=== PATIENT | female | born 1930 | race Caucasian/White ===

== ENCOUNTER 2016-10-28 09:39 | Inpatient (IN) | payer OTHER ==
[~2016-10-28] VITALS: Ht 165.1 cm; Wt 43.0 kg
[2016-10-28 10:54] LABS: Basophils # (auto) 0 uL; Basophils % (auto) 0.4 % (0.0-2.0); Eosinophils # (auto) 0 uL; Eosinophils % (auto) 0.3 % (0.0-7.0); Hematocrit 40.2 % (36.0-46.0); Hemoglobin 13.6 g/dL (12.2-16.2); Lymphocytes # (auto) 0.9 uL; Mean Corpuscular Hgb Conc. 33.9 g/dL (32.0-36.0); Mean Corpuscular Volume 88.4 fL (80.0-100.0); Mean Platelet Volume 8.8 fL (7.4-10.4); Monocytes # (auto) 0.5 uL; Monocytes % (auto) 6.7 % (0.0-12.0); Neutrophils # (auto) 5.8 uL; Neutrophils % (auto) 79.6 % (37.0-80.0); Platelet Count (auto) 333 10^3/uL (140-450); Red Cell Distribution Width 14.1 % (11.6-16.0); White Blood Cell 7.3 10^3/uL (4.4-10.8)
[2016-10-28] MEDS ORDERED: SODIUM CHLORIDE 0.9% 500 ML IVB ONE (10:55)
[2016-10-28 11:16] LABS: Albumin 3.2 g/dL (3.4-5.0); BUN/Creatinine Ratio 19.6; Calcium 9.3 mg/dL (8.5-10.1); Potassium 3.7 mmol/L (3.5-5.1); Total Protein 6.5 g/dL (6.4-8.2)
[2016-10-28 11:25] LABS: Magnesium 2.4 mg/dL (1.6-2.6)
[2016-10-28 11:27] LABS: INR 0.96 (0.9-1.15); Partial Thromboplastin Time 23.6 sec (22.64-33.71); Prothrombin Time 10.5 sec (9.37-12.3)
[2016-10-28 12:01] LABS: B-Type Natriuretic Peptide 166.79 pg/mL (0-100)
[2016-10-28] MEDS ORDERED: cefTRIAXone 1GM/50ML D5W 50 ML IV ONE (13:30)
[2016-10-28] MEDS ORDERED: NITROGLYCERIN 0.4 MG SL TAB SL PRN ×2 (13:45→14:00)
[2016-10-28] MEDS ORDERED: ALBUTEROL SULF 2.5 MG/0.5ML(0.5%) NEB SOLN NEB PRN (13:45)
[2016-10-28] MEDS ORDERED: LACTULOSE 20Gm/30ML SOLN PO PRN ×2 (13:45)
[2016-10-28] MEDS ORDERED: PROMETHAZINE HCL 25 MG/ML 1ML IV PRN ×2 (13:45→14:00)
[2016-10-28] MEDS ORDERED: LORazepam 0.5 MG TAB PO PRN (13:45)
[2016-10-28] MEDS ORDERED: TEMAZEPAM 15 MG CAP PO PRN ×2 (13:45→14:00)
[2016-10-28] MEDS ORDERED: ACETAMINOPHEN 500 MG TAB PO PRN (13:45)
[2016-10-28] MEDS ORDERED: MORPHINE SULF INJ 2 MG/ML SYRINGE 1ML IV PRN ×2 (13:45)
[2016-10-28] MEDS ORDERED: HYDROcodone-ACET 5/325MG TAB PO PRN (13:45)
[2016-10-28] MEDS: METOPROLOL TARTRATE 25 MG TAB PO SCH ×2 (15:05→23:30)
[2016-10-28] MEDS: ASPirin 81 mg TAB PO SCH (15:05)
[2016-10-28] MEDS: ENOXAPARIN SOD 30 MG/0.3 ML SYRINGE SC SCH (15:06)
[2016-10-28] MEDS: PANTOPRAZOLE 40 MG TAB PO SCH (15:06)
[2016-10-28] MEDS: cefTRIAXone 1GM/50ML D5W 50 ML IV SCH (15:13)
[2016-10-28] MEDS: SODIUM CHLORIDE 0.9% 1,000 ML IV SCH (15:13)
[2016-10-28 15:32] LABS: Temperature: 23.7 C (20.0-25.0)
[2016-10-28] MEDS: ALBUTEROL SULF 2.5 MG/0.5ML(0.5%) NEB SOLN NEB SCH (18:00)
[2016-10-28] MEDS: AZITHROMYCIN 500MG/D5W 250ML 250 ML IV SCH (20:30)
[2016-10-28 21:07] VITALS: BP 148/72
[2016-10-28] MEDS: ATORVASTATIN 20 MG TAB PO SCH (23:28)
[2016-10-29] MEDS: ALBUTEROL SULF 2.5 MG/0.5ML(0.5%) NEB SOLN NEB SCH ×4 (00:54→19:43)
[2016-10-29] MEDS: SODIUM CHLORIDE 0.9% 1,000 ML IV SCH ×2 (02:53→16:18)
[2016-10-29 09:00] VITALS: BP 162/82
[2016-10-29] MEDS ORDERED: ENOXAPARIN SOD 40 MG/0.4 ML SYRINGE SC SCH (10:00)
[2016-10-29] MEDS: cefTRIAXone 1GM/50ML D5W 50 ML IV SCH (10:15)
[2016-10-29] MEDS: ASPirin 81 mg TAB PO SCH (10:15)
[2016-10-29] MEDS: ENOXAPARIN SOD 30 MG/0.3 ML SYRINGE SC SCH (10:16)
[2016-10-29] MEDS: PANTOPRAZOLE 40 MG TAB PO SCH (10:16)
[2016-10-29] MEDS ORDERED: IOHEXOL 350 MG/ML 100ML IJ ONE (11:26)
[2016-10-29] MEDS: AZITHROMYCIN 500MG/D5W 250ML 250 ML IV SCH (12:27)
[2016-10-29 13:00] VITALS: BP 168/100
[2016-10-29] MEDS: METOPROLOL TARTRATE 25 MG TAB PO SCH ×2 (13:18→22:00)
[2016-10-29 17:46] VITALS: BP 168/88
[2016-10-29 22:30] VITALS: BP 102/69
[2016-10-29] MEDS: ATORVASTATIN 20 MG TAB PO SCH (22:39)
[2016-10-30] MEDS: ALBUTEROL SULF 2.5 MG/0.5ML(0.5%) NEB SOLN NEB SCH ×3 (00:44→12:19)
[2016-10-30] MEDS: SODIUM CHLORIDE 0.9% 1,000 ML IV SCH (03:19)
[2016-10-30 05:00] VITALS: BP 141/73
[2016-10-30 08:00] VITALS: BP 127/77
[2016-10-30 09:00] VITALS: BP 127/77
[2016-10-30] MEDS: cefTRIAXone 1GM/50ML D5W 50 ML IV SCH (09:01)
[2016-10-30] MEDS: ASPirin 81 mg TAB PO SCH (09:01)
[2016-10-30] MEDS: ENOXAPARIN SOD 30 MG/0.3 ML SYRINGE SC SCH (09:02)
[2016-10-30] MEDS: METOPROLOL TARTRATE 25 MG TAB PO SCH (09:02)
[2016-10-30] MEDS: PANTOPRAZOLE 40 MG TAB PO SCH (09:02)
[2016-10-30] MEDS: AZITHROMYCIN 500MG/D5W 250ML 250 ML IV SCH (10:02)
[2016-10-30 13:00] VITALS: BP 134/77
[2016-10-30 17:11] VITALS: BP 158/54
[2016-10-30] MEDS ORDERED: DONEPEZIL HYDROCHLORIDE 5 MG TAB PO SCH (22:00)
== END 2016-10-30 18:12 | disposition home or self-care (01) | DRG 70 ==
LOC: EDBD 09:39 → ER 09:43 → TELE 09:44 → TELE-E-ADS 16:34 → TELE-WESTW 17:37
PROVIDERS: ADMIT Internal Medicine; ATTEND Internal Medicine
DX: I67.9 Cerebrovascular disease, unspecified (principal); J18.9 Pneumonia, unspecified organism; E03.9 Hypothyroidism, unspecified; E11.65 Type 2 diabetes mellitus with hyperglycemia; E78.00 Pure hypercholesterolemia, unspecified; E78.5 Hyperlipidemia, unspecified; F02.80 Dementia in other diseases classified elsewhere, unspecified severity, without behavioral disturbance, psychotic disturbance, mood disturbance, and anxiety; R78.89 Finding of other specified substances, not normally found in blood; I99.8 Other disorder of circulatory system; G47.00 Insomnia, unspecified; F41.9 Anxiety disorder, unspecified; G30.9 Alzheimer's disease, unspecified; I15.9 Secondary hypertension, unspecified; K59.00 Constipation, unspecified; Z87.81 Personal history of (healed) traumatic fracture; Z79.899 Other long term (current) drug therapy; Z79.2 Long term (current) use of antibiotics; Z86.73 Personal history of transient ischemic attack (TIA), and cerebral infarction without residual deficits
CPT/HCPCS: 36415; 70450; 71010; 71260; 74177; 80053; 80320; 82550; 82607; 82746; 82962; 83605; 83735; 83880; 84443; 84484; 85025; 85379; 85610; 85652; 85730; 87040; 87081; 93005; 93306; 93886; 94640; 95819; 96360; 97163; 99291; J0696